=== PATIENT | female | born 1980 | race Caucasian/White ===

== ENCOUNTER 2016-07-08 02:56 | Emergency (ER) | payer OTHER ==
[2016-07-08 04:16] VITALS: BP 110/34
== END 2016-07-08 04:16 | disposition home or self-care (01) ==
LOC: ED 02:56
DX: T63.481A Toxic effect of venom of other arthropod, accidental (unintentional), initial encounter (principal); M79.89 Other specified soft tissue disorders; Y92.89 Other specified places as the place of occurrence of the external cause